=== PATIENT | male | born 1965 | race Caucasian/White ===

== ENCOUNTER 2018-02-14 16:59 | Emergency (ER) | payer MEDICAID ==
[~2018-02-14] VITALS: Ht 167.6 cm; Wt 61.2 kg
[~2018-02-14 16:59] MED LIST: ACETAMINOPHEN-1 EAC1 PO; AMOXICILLIN500 M1 PO; APAP650 PO; ASPIRIN325 PO; AZITHROMYCIN 2250 MG PO; CELEXA40 MG PO; CLEOCIN HCL150 M1 PO; CLEOCIN HCL150 MG PO; HYDROCODONE-AP1 EAC6 PO; HYDROCODONE-APA1 TA1 PO; IBUPROFEN 600600 M1 PO; IBUPROFEN 800800 M1 PO; IMDUR 30 MG TAB30 M1 PO; LUNESTA3 MG PO; MEDROL DOSPAK21 TA1 PO; MELOXICAM7.5 MG PO; NOHOMEMEDICATIONS; NORCO 5-325 TA1 EAC1 PO; NORCO 5-325 TA1 EACH PO; PERCOCET 5-3251 EACH PO; PLAVIX 75 MG TA75 M1 PO; PROMETHAZINE-C120 ML PO; TESSALON PERLE100 MG PO; ZOCOR 20 MG TAB20 M1 PO
[2018-02-14] MEDS ORDERED: NOHOMEMEDICATIONS (17:12)
[2018-02-14 17:29] LABS: ABSOLUTE EOSINOPHILS 0.1 thou/uL (0.0-0.7); ABSOLUTE LYMPHOCYTES 2.1 thou/uL (0.8-5.3); ABSOLUTE MONOCYTES 0.5 thou/uL (0.0-1.2); ABSOLUTE NEUTROPHILS 2.1 thou/uL (1.6-8.1); BASOPHILS 0.7 %; EOSINOPHILS 1.5 %; HEMATOCRIT 45.7 % (42.0-52.0); HEMOGLOBIN 15.6 gm/dL (14.0-18.0); LYMPHOCYTES 43.6 %; MCH 31.6 pg (26.0-34.0); MCHC 34.1 g/dL (28.0-37.0); MCV 92.7 fL (80.0-100.0); MPV 7.8 fl. (7.2-11.1); NUCLEATED RBCS 0 /100WBC; PLATELET COUNT* 274 thou/uL (150-400); POLYS 43.2 %; RBC 4.92 mil/uL (4.50-6.00); RDW-CV 12.6 % (10.5-14.5); WBC 4.8 thou/uL (4.0-11.0)
[2018-02-14 17:34] LABS: CALCIUM 8.4 mg/dL (8.5-10.1); CREATININE 1.1 mg/dL (0.6-1.3)
[2018-02-14 17:44] LABS: ALBUMIN 3.7 g/dL (3.4-5.0); TOTAL BILIRUBIN 0.7 mg/dL (<0.1-1.0); TOTAL PROTEIN 7.4 g/dL (6.4-8.2); TROPONIN-I LEVEL 0.1 ng/mL (<0.06)
[2018-02-14 18:43] VITALS: BP 121/84
--- NOTE | 2018-02-15 11:29 | EKG ---
[place] [address] ELECTROCARDIOGRAM REPORT Name: AMILCAR GUERRERO JR 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
== END 2018-02-14 18:43 | disposition home or self-care (01) ==
LOC: M.ERS 16:59
PROVIDERS: Emergency Medicine Emergency Medical Services
DX: I21.4 Non-ST elevation (NSTEMI) myocardial infarction (principal); F32.9 Major depressive disorder, single episode, unspecified; M19.90 Unspecified osteoarthritis, unspecified site; G30.9 Alzheimer's disease, unspecified; Z90.49 Acquired absence of other specified parts of digestive tract

== ENCOUNTER 2018-05-07 12:00 | Emergency (ER) | payer MEDICAID ==
[~2018-05-07] VITALS: Ht 170.2 cm; Wt 59.0 kg
[2018-05-07 12:17] LABS: ABSOLUTE EOSINOPHILS 0.1 thou/uL (0.0-0.7); ABSOLUTE LYMPHOCYTES 1.7 thou/uL (0.8-5.3); ABSOLUTE MONOCYTES 0.3 thou/uL (0.0-1.2); ABSOLUTE NEUTROPHILS 3.2 thou/uL (1.6-8.1); BASOPHILS 0.4 %; EOSINOPHILS 1.1 %; HEMATOCRIT 45.2 % (42.0-52.0); HEMOGLOBIN 15.2 gm/dL (14.0-18.0); LYMPHOCYTES 31.3 %; MCH 31.5 pg (26.0-34.0); MCHC 33.6 g/dL (28.0-37.0); MCV 93.7 fL (80.0-100.0); MONOCYTES 6.5 %; MPV 7.5 fl. (7.2-11.1); NUCLEATED RBCS 0 /100WBC; PLATELET COUNT* 301 thou/uL (150-400); POLYS 60.7 %; RBC 4.82 mil/uL (4.50-6.00); RDW-CV 12.7 % (10.5-14.5); WBC 5.3 thou/uL (4.0-11.0)
[2018-05-07 12:27] LABS: CALCIUM 8.7 mg/dL (8.5-10.1); POTASSIUM 4.1 mmol/L (3.5-5.1)
[2018-05-07 12:31] LABS: APTT 26.7 Seconds (25.0-31.3); PROTIME 10.2 Seconds (9.20-11.50)
[2018-05-07 12:46] LABS: ALBUMIN 3.9 g/dL (3.4-5.0); CK-MB MASS 0.9 ng/mL (<0.5-3.6); MAGNESIUM 2.1 mg/dL (1.8-2.4); TOTAL BILIRUBIN 0.6 mg/dL (<0.1-1.0); TOTAL PROTEIN 7.6 g/dL (6.4-8.2); TROPONIN-I LEVEL 0.12 ng/mL (<0.06)
[2018-05-07 13:03] LABS: URINE BILIRUBIN NEGATIVE (Negative); URINE BLOOD NEGATIVE (Negative); URINE CLARITY CLEAR; URINE COLOR YELLOW; URINE GLUCOSE-RANDOM NEGATIVE (Negative); URINE KETONES NEGATIVE (Negative); URINE LEUKOCYTES-REFLEX NEGATIVE (Negative); URINE NITRITE-REFLEX NEGATIVE (Negative); URINE PROTEIN TRACE (Negative); URINE SPECIFIC GRAVITY >= 1.030 (1.005-1.030); URINE UROBILINOGEN 0.2 E.U./dl (0.2-1.0)
[2018-05-07 13:04] VITALS: BP 110/78
[2018-05-07 13:10] LABS: AMP/METHAMP POSITIVE (Negative); BARBITURATES Negative (Negative); BENZODIAZEPINES Negative (Negative); COCAINE Negative (Negative); METHADONE Negative (Negative); OPIATES Negative (Negative); PCP Negative (Negative); THC POSITIVE (Negative)
--- NOTE | 2018-05-07 17:38 | EKG ---
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
== END 2018-05-07 13:04 | disposition left against medical advice (07) ==
LOC: M.ERS 12:00
PROVIDERS: Family Medicine
DX: E07.89 Other specified disorders of thyroid (principal); R79.89 Other specified abnormal findings of blood chemistry; F32.9 Major depressive disorder, single episode, unspecified; G30.9 Alzheimer's disease, unspecified; M19.90 Unspecified osteoarthritis, unspecified site; Z90.49 Acquired absence of other specified parts of digestive tract

== ENCOUNTER 2021-01-23 13:33 | Emergency (ER) | payer OTHER ==
[~2021-01-23] VITALS: Ht 167.6 cm; Wt 56.7 kg
[2021-01-23] MEDS ORDERED: NORCO5 PO (16:07)
[2021-01-23] MEDS ORDERED: MEDROLDOSEPACK PO (16:07)
[2021-01-23] MEDS ORDERED: IBUPROFEN 800800 M1 PO (16:07)
--- NOTE | 2021-01-23 16:35 | EKG ---
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
[2021-01-23 16:40] VITALS: BP 132/68
== END 2021-01-23 16:40 | disposition home or self-care (01) ==
LOC: M.ERS 13:33
DX: M77.8 Other enthesopathies, not elsewhere classified (principal); M19.90 Unspecified osteoarthritis, unspecified site; Z86.73 Personal history of transient ischemic attack (TIA), and cerebral infarction without residual deficits